=== PATIENT | female | born 1980 | race Caucasian/White ===

== ENCOUNTER 2017-07-04 10:19 | Emergency (ER) | payer SELFPAY ==
[2017-07-04] MEDS ORDERED: Sodium Chloride 0.9% 10 ML Syringe FLUSH PRN (11:13)
[2017-07-04] MEDS ORDERED: Acetaminophen 325 MG Tab PO ONE (11:13)
[2017-07-04] MEDS ORDERED: Famotidine 20 MG/2 ML SDV IVPUSH ONE (11:14)
--- NOTE | 2017-07-04 11:28 | EDM.PDOC ---
ED HPI GENERAL MEDICAL PROBLEM - General Chief Complaint: Abdominal Pain Stated Complaint: ABDOMINAL PAIN /6 WEEKS PREG Time Seen by Provider: 07/04/17 11:05 Source of Information: Reports: Patient History Limitations: Reports: No Limitations - History of Present Illness INITIAL COMMENTS - FREE TEXT/NARRATIVE: 36-year-old female presents for evaluation and treatment of right upper quadrant abdominal pain and epigastric pain. Reports the symptoms started around 0500 this morning. Reports that it goes through her and into her back. States that she had a similar episode 2 or 3 days ago that lasted about 4 hours and then resolved on its own. She reports associated symptoms of nausea and vomiting. She denies any fevers, chills, lower abdominal pain or cramping, vaginal bleeding or dysuria. States she's never had anything like this before. No previous surgeries to her abdomen. Reports her last intake was last night she had some berries. She only had camomile tea this morning. Patient believes she is approximately 6 weeks . Last menstrual period was on May 08. She only found out this week that she was and she took 2 urinary test which are both positive. She is a . 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 She believes her blood type is O+. She states that she has tried taking 3 Tums for her symptom relief continues to have epigastric pain. She is not on any medications. Reports she is otherwise healthy. No alcohol use. Reports she smokes about half a pack of cigarettes per day. Epigastric Pain Score (Numeric/FACES): 9 - Related Data Allergies Allergy/AdvReac Type Severity Reaction Status Date / Time No Known Allergies Allergy Verified 07/04/17 10:39 Home Meds: Home Meds . [No Known Home Meds] 07/04/17 [History] ED ROS GENERAL - Review of Systems Review Of Systems: See Below Constitutional: Denies: Fever, Chills Respiratory: Denies: Shortness of Breath Cardiovascular: Denies: Chest Pain GI/Abdominal: Reports: Abdominal Pain (RUQ and epigastric), Nausea, Vomiting : Reports: No Symptoms, Other (no vaginal bleeding, no lower abdominal pain or cramping). Denies: Dysuria ED EXAM, GI/ABD - Physical Exam Exam: See Below Exam Limited By: No Limitations General Appearance: Alert, WD/WN, Mild Distress, Obese Ears: Normal External Exam Nose: Normal Inspection Throat/Mouth: Normal Inspection, Normal Voice, No Airway Compromise Respiratory/Chest: No Respiratory Distress, Lungs Clear, Normal Breath Sounds Cardiovascular: Normal Peripheral Pulses, Regular Rate, Rhythm GI/Abdominal Exam: Normal Bowel Sounds, Soft, Tender (epigastric and RUQ; + becerril's sign) Neurological: Alert, Oriented, Normal Cognition Psychiatric: Normal Affect, Normal Mood Skin Exam: Warm, Dry, Normal Color Course - Vital Signs Last Recorded V/S: Last Vital Signs Temp 36.6 C 07/04/17 10:39 Pulse 76 07/04/17 10:39 Resp BP 154/96 H 07/04/17 10:39 Pulse Ox 100 07/04/17 10:39 - Orders/Labs/Meds Orders: Active Orders 24 hr Category Date Time Status Peripheral IV Care [RC] . DIRECTED Care 07/04/17 11:13 Active Peripheral IV Insertion Adult [OM.PC] Routine Oth 07/04/17 11:12 Ordered Labs: Laboratory Tests 07/04/17 07/04/17 07/04/17 Range/Units 11:30 11:30 11:30 WBC 11.14 H (3.98-10.04) K/mm3 RBC 4.25 (3.98-5.22) M/mm3 Hgb 12.2 (11.2-15.7) gm/L Hct 36.1 (34.1-44.9) % MCV 84.9 (79.4-94.8) fl MCH 28.7 (25.6-32.2) pg MCHC 33.8 (32.2-35.5) g/dl RDW Std Deviation 39.3 (36.4-46.3) fL Plt Count 273 (182-369) K/mm3 MPV 10.2 (9.4-12.3) fl Neutrophils % (Manual) 78 H (40-60) % Band Neutrophils % 2 (0-10) % Lymphocytes % (Manual) 15 L (20-40) % Atypical Lymphs % 0 % Monocytes % (Manual) 4 (2-10) % Eosinophils % (Manual) 0 L (0.7-5.8) % Basophils % (Manual) 1 (0.1-1.2) Platelet Estimate Adequate RBC Morph Comment Normal Sodium 136 (136-145) mEq/L Potassium 4.6 (3.5-5.1) mEq/L Chloride 102 (98-107) mEq/L Carbon Dioxide 24 (21-32) mEq/L Anion Gap 14.6 (5-15) BUN 6 L (7-18) mg/dL Creatinine 0.6 (0.55-1.02) mg/dL Est Cr Clr Drug Dosing 110.86 mL/min Estimated GFR (MDRD) > 60 (>60) mL/min BUN/Creatinine Ratio 10.0 L (14-18) Glucose 135 H (74-106) mg/dL Calcium 9.0 (8.5-10.1) mg/dL Total Bilirubin 0.3 (0.2-1.0) mg/dL GGT 32 (5-55) U/L AST 12 L (15-37) U/L ALT 19 (14-59) U/L Alkaline Phosphatase 75 (46-116) U/L C-Reactive Protein 0.2 (<1.0) mg/dL Total Protein 6.8 (6.4-8.2) g/dl Albumin 3.5 (3.4-5.0) g/dl Globulin 3.3 gm/dL Albumin/Globulin Ratio 1.1 (1-2) Lipase 115 (73-393) U/L HCG, Quant 87118.0 mIU/mL Urine Color (Yellow) Urine Appearance (Clear) Urine pH (5.0-8.0) Ur Specific [place] (1.005-1.030) Urine Protein (Negative) Urine Glucose (UA) (Negative) Urine Ketones (Negative) Urine Occult Blood (Negative) Urine Nitrite (Negative) Urine Bilirubin (Negative) Urine Urobilinogen (0.2-1.0) Ur Leukocyte Esterase (Negative) Urine RBC (0-5) /hpf Urine WBC (0-5) /hpf Ur Epithelial Cells (0-5) /hpf Urine Bacteria (FEW) /hpf Urine Mucus (FEW) /hpf 07/04/17 Range/Units 13:00 WBC (3.98-10.04) K/mm3 RBC (3.98-5.22) M/mm3 Hgb (11.2-15.7) gm/L Hct (34.1-44.9) % MCV (79.4-94.8) fl MCH (25.6-32.2) pg MCHC (32.2-35.5) g/dl RDW Std Deviation (36.4-46.3) fL Plt Count (182-369) K/mm3 MPV (9.4-12.3) fl Neutrophils % (Manual) (40-60) % Band Neutrophils % (0-10) % Lymphocytes % (Manual) (20-40) % Atypical Lymphs % % Monocytes % (Manual) (2-10) % Eosinophils % (Manual) (0.7-5.8) % Basophils % (Manual) (0.1-1.2) Platelet Estimate RBC Morph Comment Sodium (136-145) mEq/L Potassium (3.5-5.1) mEq/L Chloride (98-107) mEq/L Carbon Dioxide (21-32) mEq/L Anion Gap (5-15) BUN (7-18) mg/dL Creatinine (0.55-1.02) mg/dL Est Cr Clr Drug Dosing mL/min Estimated GFR (MDRD) (>60) mL/min BUN/Creatinine Ratio (14-18) Glucose (74-106) mg/dL Calcium (8.5-10.1) mg/dL Total Bilirubin (0.2-1.0) mg/dL GGT (5-55) U/L AST (15-37) U/L ALT (14-59) U/L Alkaline Phosphatase (46-116) U/L C-Reactive Protein (<1.0) mg/dL Total Protein (6.4-8.2) g/dl Albumin (3.4-5.0) g/dl Globulin gm/dL Albumin/Globulin Ratio (1-2) Lipase (73-393) U/L HCG, Quant mIU/mL Urine Color Light yellow (Yellow) Urine Appearance Clear (Clear) Urine pH 6.5 (5.0-8.0) Ur Specific [place] 1.010 (1.005-1.030) Urine Protein Negative (Negative) Urine Glucose (UA) Negative (Negative) Urine Ketones Negative (Negative) Urine Occult Blood Negative (Negative) Urine Nitrite Negative (Negative) Urine Bilirubin Negative (Negative) Urine Urobilinogen 0.2 (0.2-1.0) Ur Leukocyte Esterase Negative (Negative) Urine RBC Not seen (0-5) /hpf Urine WBC 0-5 (0-5) /hpf Ur Epithelial Cells 0-5 (0-5) /hpf Urine Bacteria Few (FEW) /hpf Urine Mucus Not seen (FEW) /hpf Meds: Medications Discontinued Medications Generic Name Dose Route Start Last Admin Trade Name Joelq PRN Reason Stop Dose Admin Acetaminophen 975 mg 07/04/17 11:13 07/04/17 12:38 Tylenol PO 07/04/17 11:14 975 mg NOW ONE Administration Famotidine 20 mg 07/04/17 11:14 07/04/17 11:47 Pepcid IVPUSH 07/04/17 11:15 20 mg ONETIME ONE Administration Sodium Chloride 1,000 mls @ 999 mls/hr 07/04/17 12:39 07/04/17 13:00 Normal Saline IV 07/04/17 13:39 999 mls/hr ONETIME ONE Administration Metoclopramide HCl 5 mg 07/04/17 12:39 07/04/17 13:00 Reglan IVPUSH 07/04/17 12:40 5 mg ONETIME ONE Administration Sodium Chloride 10 ml 07/04/17 11:13 07/04/17 11:49 Saline Flush FLUSH 10 ml ASDIRECTED PRN Administration Keep Vein Open - Radiology Interpretation Free Text/Narrative:: Limited abdominal ultrasound: Multiple real-time images were obtained of the upper right abdomen. Comparison: No previous abdominal imaging. Findings: 1.4 cm stone is identified within the gallbladder neck which is not mobile during the exam. No gallbladder wall thickening, no pericholecystic fluid with no biliary duct dilatation being seen. Liver shows no focal abnormality. Right kidney shows no hydronephrosis or mass and has a length of 12.2 cm. Visualized portions of the pancreas are unremarkable. Impression: 1. Gallstone within the gallbladder neck. No additional abnormality is seen within the gallbladder. 2. Other portions of the right upper quadrant abdominal ultrasound are unremarkable. - Re-Assessments/Exams Free Text/Narrative Re-Assessment/Exam: 07/04/17 14:02 I reviewed the labs and imaging with the patient. Her pain is resolved with pepcid and tylenol. Will discharge her home with instructions to follow up with OB and surgery. Low- fat diet. Discharge instructions as documented. Departure - Departure Time of Disposition: 14:02 Disposition: Home, Self-Care 01 Clinical Impression: , Gallstone - Discharge Information Instructions: Cholelithiasis, [id number] Referrals: PCP,None [Primary Care Provider] - Gustavo Tobias MD [Physician] - Tom Brandt MD [Physician] - Forms: ED Department Discharge Additional Instructions: [id number] Tylenol as needed for pain. He may not take NSAIDs such as ibuprofen, aspirin, etc. longer . Follow-up with OB. Recommend Dr. Tobias at the [facility]. Call to schedule with him. Recommend avoiding fatty foods. If you are noticing that fruits are causing your symptoms recommend avoiding acidic fruits at this time. Please return to the ER for symptoms change or worsen. - My Orders Last 24 Hours: My Active Orders 07/04/17 11:12 Peripheral IV Insertion Adult [OM.PC] Routine 07/04/17 11:13 Peripheral IV Care [RC] . DIRECTED - Assessment/Plan Last 24 Hours: My Active Orders 07/04/17 11:12 Peripheral IV Insertion Adult [OM.PC] Routine 07/04/17 11:13 Peripheral IV Care [RC] . DIRECTED
[2017-07-04] MEDS ORDERED: Metoclopramide 10 MG/2 ML SDV IVPUSH ONE (12:39)
[2017-07-04] MEDS ORDERED: Sodium Chloride 0.9% 1,000 ML IV ONE (12:39)
--- NOTE | 2017-07-04 12:39 | US ---
Limited abdominal ultrasound: Multiple real-time images were obtained of the upper right abdomen. Comparison: No previous abdominal imaging. Findings: 1.4 cm stone is identified within the gallbladder neck which is not mobile during the exam. No gallbladder wall thickening, no pericholecystic fluid with no biliary duct dilatation being seen. Liver shows no focal abnormality. Right kidney shows no hydronephrosis or mass and has a length of 12.2 cm. Visualized portions of the pancreas are unremarkable. Impression: 1. Gallstone within the gallbladder neck. No additional abnormality is seen within the gallbladder. 2. Other portions of the right upper quadrant abdominal ultrasound are unremarkable. Diagnostic code #3
== END 2017-07-04 14:14 | disposition home or self-care (01) ==
LOC: JD.ED 10:19
DX: O99.611 Diseases of the digestive system complicating pregnancy, first trimester (principal); K80.20 Calculus of gallbladder without cholecystitis without obstruction
CPT/HCPCS: 36415; 76705; 80053; 81001; 82977; 83690; 84702; 85025; 86140; 96361; 96374; 96375; 99284; A9270; J2765; J7040; J7050; 99283

== ENCOUNTER 2017-07-08 11:48 | Day surgery (SDC) | payer SELFPAY ==
[2017-07-08] MEDS: Lidocaine 1% with EPINEPHrine 1:100,000 20 ML MDV ONE ×2 (10:59→13:29)
[2017-07-08] MEDS: Bupivacaine 0.5%/EPINEPHrine 1:200,000 50 ML MDV ONE ×2 (10:59→13:29)
[2017-07-08] MEDS ORDERED: Sodium Chloride 0.9% 10 ML Syringe FLUSH PRN (12:50)
[2017-07-08] MEDS ORDERED: ceFAZolin 2 GM in Premix Bag 1 BAG IV ONE (12:50)
--- NOTE | 2017-07-08 12:57 | PCM.HP ---
H&P History of Present Illness - General Date of Service: 07/08/17 Admit Problem/Dx: Biliary colic secondary to cholelithiasis Source of Information: Patient - History of Present Illness Initial Comments - Free Text/Narative: 36-year-old female who is 9 weeks has had 2 episodes of right upper quadrant abdominal pain related to Ultrasonographically confirmed gallstones that has taken her to the emergency room. She discussed having her gallbladder removed with her bilingual receptionist who called me and asked for my evaluation. Upper Abdominal Pain Score (Numeric/FACES): 9 - Related Data Allergies/Adverse Reactions: Allergies Allergy/AdvReac Type Severity Reaction Status Date / Time No Known Allergies Allergy Verified 07/08/17 12:10 Home Medications: Home Meds . 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 Exam - Exam Exam: See Below - Vital Signs Vital Signs: Last Vital Signs Temp 36.2 C 07/08/17 12:07 Pulse 59 L 07/08/17 12:07 Resp 16 07/08/17 12:07 BP 138/79 07/08/17 12:07 Pulse Ox 100 07/08/17 12:07 Weight: 79.379 kg - Exam General: Alert, Oriented, Cooperative, Mild Distress HEENT: EOMI, Hearing Intact Neck: Supple, Trachea Midline Lungs: Clear to Auscultation, Normal Respiratory Effort Cardiovascular: Regular Rate, Regular Rhythm, Normal S1, Normal S2 GI/Abdominal Exam: Other (Right upper quadrant abdominal tenderness) (Female) Exam: Deferred Rectal (Female) Exam: Deferred Back Exam: Normal Inspection Extremities: Normal Inspection, Non-Tender Skin: Warm, Dry, Intact Psychiatric: Alert, Normal Affect, Normal Mood *Q Meaningful Use (ADM) - VTE *Q VTE Criteria *Q: - Stroke *Q Stroke Criteria *Q: - AMI *Q AMI Criteria *Q: - Problem List (1) Biliary colic symptom SNOMED Code(s): 02549598 ICD Code: K80.50 - CALCULUS OF BILE DUCT W/O CHOLANGITIS OR CHOLECYST W/O OBST Status: Acute (2) Gallstone SNOMED Code(s): 530566981 ICD Code: K80.20 - CALCULUS OF GALLBLADDER W/O CHOLECYSTITIS W/O OBSTRUCTION Status: Acute (3) SNOMED Code(s): 88274127 ICD Code: Z34.90 - ENCNTR FOR SUPRVSN OF NORMAL , UNSP, UNSP TRIMESTER Status: Chronic Qualifiers: Weeks of gestation: 9 weeks Qualified Code(s): Z3A.09 - 9 weeks gestation of Problem List Initiated/Reviewed/Updated: Yes Orders Last 24hrs: Active Orders 24 hr Category Date Time Status Patient to Empty Bladder [RC] ASDIRECTED Care 07/08/17 12:50 Ordered Peripheral IV Care [RC] . DIRECTED Care 07/08/17 12:51 Ordered Verify Patient Consent Obtain [RC] ASDIRECTED Care 07/08/17 12:50 Ordered Nothing Per Oral Diet [DIET] Diet 07/08/17 Lunch Ordered Sodium Chloride 0.9% @ 125 MLS/HR (1000ml) Med 07/08/17 13:00 Ordered Sodium Chloride 0.9% [Normal Saline] 1,000 ml IV ASDIRECTED Sodium Chloride 0.9% [Saline Flush] Med 07/08/17 12:50 Ordered 10 ml FLUSH ASDIRECTED PRN ceFAZolin [Ancef] 2 gm Med 07/08/17 12:50 Ordered Premix Bag 1 bag IV ONETIME Peripheral IV Insertion Adult [OM.PC] Routine Oth 07/08/17 12:50 Ordered Resuscitation Status Routine Resus Stat 07/08/17 12:50 Ordered Assessment/Plan Comment:: Severe biliary colic secondary to gallstones. I recommended laparoscopic cholecystectomy. Her bilingual receptionist is in agreement. The patient definitely wants to proceed without hesitation. I did discuss the low likelihood of her boarding and she and her said that they understood.
--- NOTE | 2017-07-08 12:59 | PCM.PREANE ---
Preanesthetic Assessment - Anesthesia/Transfusion/Family Hx Anesthesia History: Prior Anesthesia Without Reaction Family History of Anesthesia Reaction: No Transfusion History: No Prior Transfusion(s) - Review of Systems General: No Symptoms Pulmonary: No Symptoms Cardiovascular: No Symptoms Gastrointestinal: Abdominal Pain Neurological: No Symptoms Other: Reports: None - Physical Assessment NPO Status Date: 07/07/17 NPO Status Time: 00:00 Pulse: 59 O2 Sat by Pulse Oximetry: 100 Respiratory Rate: 16 Blood Pressure: 138/79 Temperature: 36.2 C Vital Signs: Last Vital Signs Temp 36.2 C 07/08/17 12:07 Pulse 59 L 07/08/17 12:07 Resp 16 07/08/17 12:07 BP 138/79 07/08/17 12:07 Pulse Ox 100 07/08/17 12:07 Height: 1.63 m Weight: 79.379 kg ASA Class: 2 Mental Status: Alert & Oriented x3 Airway Class: Mallampati = 1 Dentition: Reports: Normal Dentition Thyro-Mental Finger Breadths: 3 Mouth Opening Finger Breadths: 3 ROM/Head Extension: Full Lungs: Clear to Auscultation, Normal Respiratory Effort Cardiovascular: Regular Rate, Regular Rhythm, No Murmurs - Allergies Allergies/Adverse Reactions: Allergies Allergy/AdvReac Type Severity Reaction Status Date / Time No Known Allergies Allergy Verified 07/08/17 12:10 - Anesthesia Plan Pre-Op Medication Ordered: None - Acknowledgements Anesthesia Type Planned: General Anesthesia Pt an Appropriate Candidate for the Planned Anesthesia: Yes Alternatives and Risks of Anesthesia Discussed w Pt/Guardian: Yes Pt/Guardian Understands and Agrees with Anesthesia Plan: Yes PreAnesthesia Questionnaire - Past Health History Medical/Surgical History: Denies Medical/Surgical History Gastrointestinal History: Reports: GERD 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 [No Known Home Meds] 07/04/17 [History] - CURRENT (IN HOUSE) MEDS Current Meds: Current Medications Cefazolin Sodium/Dextrose 2 gm (/ Premix) 50 mls @ 100 mls/hr IV ONETIME ONE Stop: 07/08/17 13:19 Sodium Chloride (Normal Saline) 1,000 mls @ 125 mls/hr IV ASDIRECTED SHERLY Sodium Chloride (Saline Flush) 10 ml FLUSH ASDIRECTED PRN PRN Reason: Keep Vein Open
[2017-07-08] MEDS ORDERED: Sodium Chloride 0.9% 1,000 ML IV SCH (13:00)
[2017-07-08] MEDS ORDERED: fentaNYL 250 MCG/5 ML SDV ONE (13:19)
[2017-07-08] MEDS ORDERED: Propofol 200 MG/20 ML SDV ONE (13:19)
[2017-07-08] MEDS ORDERED: Ondansetron 4 MG/2 ML SDV ONE (13:20)
[2017-07-08] MEDS ORDERED: Dexamethasone 4 MG/ML 5 ML MDV ONE (13:20)
[2017-07-08] MEDS ORDERED: Rocuronium 50 MG/5 ML Vial ONE (13:20)
[2017-07-08] MEDS ORDERED: Lidocaine 1% 4 ML ONE (13:20)
[2017-07-08] MEDS ORDERED: Lactated Ringers 1,000 ML ONE (14:09)
[2017-07-08] MEDS ORDERED: fentaNYL 100 MCG/2 ML SDV ONE (14:20)
--- NOTE | 2017-07-08 14:22 | PCM.OPNOTE ---
- General Post-Op/Procedure Note Date of Surgery/Procedure: 07/08/17 Operative Procedure(s): Laparoscopic cholecystectomy Findings: 2 cm greenish impacted stone in Archibald's pouch with associated distended gallbladder with gallbladder edema and no necrosis or gangrene Pre Op Diagnosis: Biliary colic secondary to cholelithiasis Post-Op Diagnosis: Same Anesthesia Technique: General ET Tube, Local Primary Surgeon: Tom Brandt Pathology: Gallbladder and contents EBL in mLs: 2 Complications: None Condition: Good Free Text/Narrative:: After adequate general endotracheal tube anesthesia was obtained the patient's abdomen was prepped and draped sterilely for a laparoscopic cholecystectomy. A supraumbilical incision was made with a 15 blade after local analgesia was given. This incision was deepened sharply to the midline which was opened. A 12 mm camera port was placed followed by CO2 pneumoperitoneum. 3--5 mm working ports were placed along the right costal margin. The gallbladder was distended and I made a small opening in it to decompress it with the suction uc architect. I grasped the fundus of the gallbladder and retracted it and the liver in a cephalad direction. I then grasped Archibald's pouch and then dissected out in continuity the cystic duct and cystic artery. These structures were clipped with 5 mm clips and divided in continuity with scissors. I then was able to take the gallbladder down in a retrograde fashion with the hook cautery placing in a specimen bag and removing it through the umbilicus. I irrigated out the gallbladder bed and right upper quadrant. The area was bile static and there was no bowel injury or bleeding. I closed the camera port site with a figure-of- eight 0 Vicryl suture. I closed the subcutaneous tissues and skin with Vicryl as well. Steri-Strips and gauze were used for the dressing. Photographs were taken for the patient and for the medical record. There were no procedural complications.
[2017-07-08] MEDS ORDERED: fentaNYL 100 MCG/2 ML SDV IVPUSH PRN (14:32)
--- NOTE | 2017-07-08 14:33 | PCM.POSTAN ---
POST ANESTHESIA ASSESSMENT - MENTAL STATUS Mental Status: Alert, Oriented - VITAL SIGNS Pulse Rate: 97 SaO2: 98 Resp Rate: 16 Blood Pressure: 128/77 Temperature: 36.6 C - RESPIRATORY Respiratory Status: Respiratory Rate WNL, Airway Patent, O2 Saturation Stable, Supplemental Oxygen - CARDIOVASCULAR CV Status: Pulse Rate WNL, Blood Pressure Stable - GASTROINTESTINAL GI Status: No Symptoms - PAIN Pain Score: 0 - POST OP HYDRATION Hydration Status: Adequate & Stable - OBSERVATIONS Free Text/Narrative:: no anesthesia complications noted
[2017-07-09] MEDS: Bupivacaine 0.5%/EPINEPHrine 1:200,000 50 ML MDV ONE (10:59)
[2017-07-09] MEDS: Lidocaine 1% with EPINEPHrine 1:100,000 20 ML MDV ONE (10:59)
== END 2017-07-08 16:10 | disposition home or self-care (01) ==
LOC: JD.ED 11:48 → JD.SDS 13:13
PROVIDERS: ATTEND Surgery
DX: K81.1 Chronic cholecystitis (principal); F17.210 Nicotine dependence, cigarettes, uncomplicated
CPT/HCPCS: 47562; 99285; J1100; J2405; J3010; J7120; 00790; J2001; J2704